=== PATIENT | female | born 1970 | race Caucasian/White ===

== ENCOUNTER → 2021-04-29 14:37 | Outpatient (BNVA) | payer BC, SELFPAY | PROVIDERS: Visit Provider Nurse Practitioner Family | DX: M25.572 Pain in left ankle and joints of left foot (principal); R60.0 Localized edema | CPT/HCPCS: 73610 ==

== ENCOUNTER 2021-10-12 03:03 | Emergency (ER) | payer BC, SELFPAY ==
[2021-10-12 03:05] VITALS: BP 188/91; PULSE 63; RESP 18; TEMP 36.7; O2SAT 97; BMI 58.1
--- NOTE | 2021-10-12 03:09 | CTR_ITS ---
PROCEDURE INFORMATION: Exam: CT Head Without Contrast Exam date and time: 10/12/2021 3:09 AM Age: 51 years old Clinical indication: Weakness, extremity and weakness, facial; Left; Additional info: Stroke symptoms, weakness TECHNIQUE: Imaging protocol: Computed tomography of the head without contrast. Radiation optimization: All CT scans at this facility use at least one of these dose optimization techniques: automated exposure control; mA and/or kV adjustment per patient size (includes targeted exams where dose is matched to clinical indication); or iterative reconstruction. Other technique: STROKE PROTOCOL was implemented. COMPARISON: No relevant prior studies available. RADIATION DOSE METRICS: Total DLP (mGy-cm): 788.19 FINDINGS: Brain: Normal. No hemorrhage. Unremarkable white matter. No mass effect. Cerebral ventricles: No ventriculomegaly. Paranasal sinuses: Visualized sinuses are unremarkable. No fluid levels. Mastoid air cells: Visualized mastoid air cells are well aerated. Bones/joints: Defects at the medial orbital huddleston bilaterally are probably chronic. Soft tissues: Unremarkable. CT/CT head wo con* [id number] IMPRESSION: No acute intracranial abnormality. ASSESSMENT: ASPECTS ([place] Stroke Program Early CT Score) is 10.
--- NOTE | 2021-10-12 03:10 | XRR_ITS ---
PROCEDURE INFORMATION: Exam: XR Chest Exam date and time: 10/12/2021 3:10 AM Age: 51 years old Clinical indication: Other: Weakness TECHNIQUE: Imaging protocol: XR of the chest. Views: 1 view. COMPARISON: CR Chest 2 views* [id number] 01/18/2015 10:26 PM FINDINGS: Lungs: Unremarkable. No consolidation. Pleural spaces: Unremarkable. No pleural effusion. No pneumothorax. Heart/Mediastinum: Heart is borderline prominent and mildly increased. Bones/joints: No acute findings. XR/XR chest 1V portable [id number] IMPRESSION: Borderline cardiac prominence with mild increase from prior study but otherwise unchanged.
--- NOTE | 2021-10-12 03:10 | ECG_ITS ---
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 Measurements Intervals [place] Rate: 75 P: 33 ID: [id number] QRS: 7 QRSD: 89 T: -5 QT: 352 QTc: 393 Interpretive Statements SINUS RHYTHM WITH SHORT ID INTERVAL MODERATE VOLTAGE CRITERIA FOR LVH, CONSIDER NORMAL VARIANT [MEETS CRITERIA IN ONE OF: R(aVL), S(V1), R(V5), R(V5/V6)+S(V1)] NONSPECIFIC T-WAVE ABNORMALITY INTERPRETATION BASED ON A DEFAULT AGE OF 40 YEARS No previous ECG available for comparison Electronically Signed On 10-12-2021 8:10:11 ELECTRIC MOTOR TESTER by Shala Ring M.D. [id number] f
--- NOTE | 2021-10-12 03:12 | W.ED.NEUROSD ---
HPI - Neuro Symptoms/Deficit General: Chief Complaint: Weakness Stated Complaint: L sided weakness Time Seen by Provider: 10/12/21 03:08 History of Present Illness: HPI Narrative: 51-year-old female with a history of hypertension. She presents with symptoms of left-sided numbness mainly, potentially with some weakness that started around 1 AM. She states she had been sitting watching a movie, and noticed that her left leg began to feel numb. She got up and walked around, and it started tingling. She then noticed some paresthesia to her left face and left upper extremity as well. She was able to walk. She dialed 911. There are no language problems, blind spots, no confusion. She has noticed some visual changes lately, that her vision has been a bit more blurry. She actually saw an eye doctor on Wednesday and her prescription had changed. Onset (ago): hour(s) Time: 03:20 Last Observed Normal: 01:00 Location: left face, left arm and left leg History of same: No Severity: mild Quality: numb and tingling Relieving factors: none Exacerbating factors: none Associated symptoms: Reports headache(s), nausea and weakness (Potentially); Deny chest pain, cough, diaphoresis, fevers/chills, anorexia, short of breath or vomiting Review of Systems Const: Denies: diaphoresis Card: Denies: chest pain GI: Reports: nausea; Denies: vomiting Neuro: Reports: headache(s) NIH stroke score NIHSS: Level Of Consciousness - 1a: 0 Level Of Consciousness Questions - 1b: Both Correct Level Of Consciousness Commands - 1c: Both Correct Best Gaze - 2: Normal Visual Watson - 3: No Visual Loss Facial Palsy - 4: Normal Motor Arm Right - 5: No Drift Motor Arm Left - 5: No Drift Motor Leg Right - 6: No Drift Motor Leg Left - 6: No Drift Limb Ataxia - 7: Absent Sensory - 8: Mild To Moderate Loss Best Language - 9: No Aphasia Dysarthia - 10: Normal Extinction And Inattention - 11: 0 Score: Total Score: 1 Physical Exam Const: GENERAL APPEARANCE: cooperative and anxious NUTRITIONAL APPEARANCE: obese ORIENTATION/CONSCIOUSNESS: Yes awake, Yes oriented to person, Yes oriented to place and Yes oriented to time HENMT: COMMON NORMALS: normocephalic and atraumatic HEAD & SCALP: normocephalic and atraumatic FACE & SINUS: normal facial exam Eye: COMMON NORMALS: Equal, round and reactive pupils present and EOMs intact bilaterally PUPIL: Yes Equal, round and reactive pupils present Chest: COMMONS NORMALS: normal inspection of the chest Resp: COMMON NORMALS: normal respiratory effort, No use of accessory muscles and clear to auscultation bilaterally AUSCULTATION: clear to auscultation bilaterally Cardio: COMMON NORMALS: regular rate and regular rhythm RATE: regular rate RHYTHM: regular rhythm GI: COMMON NORMALS: Normal to inspection, nondistended, normoactive bowel sounds present and Soft to palpation PALPATION: Yes Soft to palpation Neuro: SARAH COMA SCALE: document GCS findings Sarah coma scale eye opening: Spontaneous Sarah coma scale verbal response: Orientated Sarah coma scale motor response: Obey commands [place] coma scale total score: 15 SENSORIUM/ORIENTATION: Yes oriented to person, Yes oriented to place and Yes oriented to time COORDINATION/BALANCE: [id number] test normal SPEECH: speech normal GAIT: Yes Normal gait present SENSORY EXAM: Yes extremities (Mild decrease sensation to left medial leg. Other sensation intact) MOTOR EXAM: Pronator motor function not present COORDINATION: [id number]-gy-[id number] test normal Course Vital Signs: Vital signs: Vital Signs Temperature 98.1 F 10/12/21 03:05 Pulse Rate 63 10/12/21 03:05 Respiratory Rate 18 10/12/21 06:18 Blood Pressure 162/82 10/12/21 06:18 Pulse Oximetry 93 10/12/21 05:51 MDM - Neuro Symptoms/Deficit MDM Narrative: Medical decision making narrative: No pronator drift. She has some left knee pain limiting her lower extremity exam to some degree, but no discoordination/ataxia on the left. There may be some subjective heaviness of the left side, but not enough to score on NIH testing. Minimal sensation change left she does appear anxious. She is hypertensive here with a blood pressure 187/98. She did not take her atenolol tonight. She has a headache. Her head CT noncontrast is normal. Her NIH is 1. 0701: Patient resting comfortably in the bed. On reexamination, her paresthesia is improved, not completely gone. No other symptoms. She has walked to the bathroom more than once without significant problem besides the antalgia from her left knee. She will be allowed discharge. We will continue work-up as an outpatient with MRI and echo with carotids. Full dose aspirin. Outpatient follow-up. She is already on atorvastatin. Lab Data: Labs: Lab Results 10/12/21 10/12/21 10/12/21 03:24 03:24 03:24 WBC 7.7 10^3/uL 10^3/ uL (4.0-10.0) RBC 4.06 10^6/uL L 10 ^6/uL (4.1-5.3) Hgb 12.2 g/dL g/dL (11.5-15.3) Hct 38.8 % % (37.0-47.0) MCV 95.6 fl fl (81-99) MCH 30.0 pg pg (28.0-34.0) MCHC 31.4 g/dL g/dL (30.0-36.0) RDW 13.5 % % (12.1-15.1) Plt Count 262 10^3/cmm 10^3 /cmm (130-400) MPV 10.1 fL fL (7.4-10.4) Neut % (Auto) 58.4 % % Lymph % (Auto) 33.1 % % [place] % (Auto) 6.3 % % Eos % (Auto) 1.4 % % Baso % (Auto) 0.4 % % Neut # (Auto) 4.47 10^3/uL 10^3 /uL (1.8-7.7) Lymph # (Auto) 2.5 10^3/uL 10^3/ uL (0.8-4.8) [place] # (Auto) 0.5 10^3/uL 10^3/ uL (0.2-0.9) Eos # (Auto) 0.1 10^3/uL 10^3/ uL (0.0-0.8) Baso # (Auto) 0.0 10^3/uL 10^3/ uL (0.0-0.1) Nucleated RBC % (a uto) 0 % % Nucleated RBCs # 0.0 /100WBC /100W BC PT 12.90 SECONDS SEC ONDS (12.1-14.9) INR 0.95 (0.8-1.2) APTT 26.2 SECONDS SECO NDS (23.9-36.7) Sodium 140 mmol/L mmol/L (136-145) Potassium 4.0 mmol/L mmol/L (3.5-5.1) Chloride 103 mmol/L mmol/L (98-107) Carbon Dioxide 27 mmol/L mmol/L (22-29) Anion Gap 14.0 (5-19) BUN 12 mg/dL mg/dL (6-20) Creatinine 0.6 mg/dL mg/dL (0.5-0.9) GFR Calculation 105.0 mL/min mL/m in (90-130) Glucose 112 mg/dL mg/dL (65-115) Calculated Osmolal ity 291 mOsm/kg mOsm/ kg (285-295) Calcium 8.4 mg/dL L mg/dL (8.5-10.5) Total Bilirubin 0.2 mg/dL mg/dL (0.15-1.2) AST 9 U/L U/L (0-32) ALT 11 U/L U/L (0-33) Alkaline Phosphata se 76 IU/L IU/L (35-105) Troponin T Gen 5 n g/L Total Protein 6.4 g/dL L g/dL (6.6-8.7) Albumin 3.8 g/dL g/dL (3.5-5.2) Globulin 2.6 g/dL g/dL (1.3-4.6) Urine Color Urine Appearance Urine pH Ur Specific Gravit y Urine Protein Urine Glucose (UA) Urine Ketones Urine Blood Urine Nitrate Urine Bilirubin Urine Urobilinogen Ur Leukocyte Judy ase Urine Opiates Scre en Ur Barbiturates Sc reen Ur Phencyclidine S crn Ur Amphetamines Sc reen U Benzodiazepines Scrn Urine Cocaine Scre en U Marijuana (THC) Screen 10/12/21 10/12/21 10/12/21 03:24 04:58 04:58 WBC RBC Hgb Hct MCV MCH MCHC RDW Plt Count MPV Neut % (Auto) Lymph % (Auto) [place] % (Auto) Eos % (Auto) Baso % (Auto) Neut # (Auto) Lymph # (Auto) [place] # (Auto) Eos # (Auto) Baso # (Auto) Nucleated RBC % (a uto) Nucleated RBCs # PT INR APTT Sodium Potassium Chloride Carbon Dioxide Anion Gap BUN Creatinine GFR Calculation Glucose Calculated Osmolal ity Calcium Total Bilirubin AST ALT Alkaline Phosphata se Troponin T Gen 5 n g/L 9 ng/L ng/L (0-10) Total Protein Albumin Globulin Urine Color Yellow (Yellow) Urine Appearance Clear (CLEAR) Urine pH 5 (5-7) Ur Specific Gravit y 1.020 (1.005-1.030) Urine Protein Neg (Negative) Urine Glucose (UA) Norm (Normal) Urine Ketones Negative (Negative) Urine Blood Neg (Negative) Urine Nitrate Negative (Negative) Urine Bilirubin Neg (Negative) Urine Urobilinogen Norm mg/dL mg/dL (Negative) Ur Leukocyte Judy ase Negative (Negative) Urine Opiates Scre en Positive ng/mL H ng/mL (Negative) Ur Barbiturates Sc reen Negative ng/mL ng /mL (Negative) Ur Phencyclidine S crn Negative ng/mL ng /mL (Negative) Ur Amphetamines Sc reen Negative ng/mL ng /mL (Negative) U Benzodiazepines Scrn Positive ng/mL H ng/mL (Negative) Urine Cocaine Scre en Negative ng/mL ng /mL (Negative) U Marijuana (THC) Screen Negative ng/mL ng /mL (Negative) Discharge Plan Discharge Patient Disposition: Home Clinical Impression: Transient ischemic attack (TIA) Condition: Stable Prescriptions: New aspirin 325 mg capsule 325 mg PO DAILY Qty: 30 RF: 0 Discharge Orders: Discharge ED (Routine); Ordered 10/12/21 Ordered By: Danny Keith Referrals: Lolis Sesay [Primary Care Provider] - 1-3 days Discharge Diet: Advance as tolerated Discharge Activity: Increase activity as tolerated Patient Instructions: Transient Ischemic Attack (ED) Activity Restrictions/Additional Instructions: Return for increasing weakness or numbness, mental status changes, trouble with language, worsening vision, syncope or passing out, any other concerns. Medications as directed. Follow-up with your doctor. Outpatient orders have been written for you for further testing regarding your work-up. You should get a call from case management at the beginning of the next week to help you set these up. If you do not, call [phone] during normal business hours and ask for the child support case officer phone engineer. Coding Level of Care Code ED Armored Machine Operator for Valentino Fwd Exam Comprehensive
[2021-10-12 03:29] LABS: Basophils % 0.4 %; Eosinophils # 0.1 10^3/uL (0.0-0.8); Eosinophils % 1.4 %; Hematocrit 38.8 % (37.0-47.0); Hemoglobin 12.2 g/dL (11.5-15.3); Lymphocytes # 2.5 10^3/uL (0.8-4.8); Lymphocytes % 33.1 %; Mean Corpuscular HGB Conc 31.4 g/dL (30.0-36.0); Mean Corpuscular Volume 95.6 fl (81-99); Mean Platelet Volume 10.1 fL (7.4-10.4); Monocytes # 0.5 10^3/uL (0.2-0.9); Monocytes % 6.3 %; Neutrophils # 4.47 10^3/uL (1.8-7.7); Neutrophils % 58.4 %; Nucleated Red Blood Cells % 0 %; Platelet Count 262 10^3/cmm (130-400); Red Blood Count 4.06 10^6/uL (4.1-5.3); Red Cell Distribution Width 13.5 % (12.1-15.1); White Blood Count 7.7 10^3/uL (4.0-10.0)
[2021-10-12 03:40] LABS: INR 0.95 (0.8-1.2)
[2021-10-12 03:41] LABS: Partial Thromboplastin Time 26.2 SECONDS (23.9-36.7)
[2021-10-12 03:49] LABS: Alanine Aminotransferase 11 U/L (0-33); Albumin Level 3.8 g/dL (3.5-5.2); Alkaline Phosphatase 76 IU/L (35-105); Aspartate Amino Transferase 9 U/L (0-32); Blood Urea Nitrogen 12 mg/dL (6-20); Calcium 8.4 mg/dL (8.5-10.5); Carbon Dioxide 27 mmol/L (22-29); Chloride 103 mmol/L (98-107); Globulin 2.6 g/dL (1.3-4.6); Glucose 112 mg/dL (65-115); Osmolality Calculated 291 mOsm/kg (285-295); Sodium 140 mmol/L (136-145); Total Bilirubin 0.2 mg/dL (0.15-1.2); Total Protein 6.4 g/dL (6.6-8.7)
[2021-10-12] MEDS: labetalol 5 mg/mL SDV 20mL 10 MG IVP (03:56)
[2021-10-12] MEDS: LORazepam 2 mg/mL INJ 1 mL 1 MG IVP ×2 (03:56→06:11)
[2021-10-12] MEDS: aspirin 325 mg Tablet PO (03:56)
[2021-10-12] MEDS: ondansetron 2 mg/ML SDV 2 mL 4 MG IVP (04:01)
[2021-10-12 05:08] LABS: Add Urine Microscopic? NO; Charge for UA Resulting for Rev
[2021-10-12 05:22] LABS: Bilirubin Urine Neg (Negative); Blood Urine Neg (Negative); Glucose Urine UA Norm (Normal); Ketones Urine Negative (Negative); Leukocyte Esterase Urine Negative (Negative); Nitrate Urine Negative (Negative); Protein Urine Neg (Negative); Urine Appearance Clear (CLEAR); Urine Color Yellow (Yellow); Urobilinogen Urine Norm (Negative); pH Urine 5 (5-7)
[2021-10-12 05:32] LABS: Troponin T (5th) Once 9 ng/L (0-10)
[2021-10-12 05:37] LABS: Amphetamines Screen Urine Negative (Negative); Barbiturates Screen Urine Negative (Negative); Benzodiazepines Screen Urine Positive (Negative); Cocaine Screen Urine Negative (Negative); Opiate Screen Urine Positive (Negative); PCP Screen Urine Negative (Negative); THC Screen Urine Negative (Negative)
[2021-10-12] MEDS: metoclopramide 5 mg/mL SDV 2 mL 10 MG IVP (05:44)
[2021-10-12 05:51] VITALS: BP 137/66; O2SAT 93
[2021-10-12 06:18] VITALS: BP 162/82; RESP 18
[2021-10-12 08:37] VITALS: BP 162/82; PULSE 98; RESP 18; O2SAT 98
[2021-10-12 08:59] LABS: Glucose Point of Care 112 mg/dL (70-110)
--- NOTE | 2021-10-13 07:06 | DCPLANNER ---
Addendum entered by Portia Mullins 01/22/22 14:08: property manager was notified by centralized scheduling, that patient has been contacted several times about scheduling these tests and patient does not want to schedule these tests. Original Note: property manager had message to schedule an outpatient MRI, echo and ultrasound for patient. property manager faxed signed order to centralized scheduling, who will call patient with appointment information.
== END 2021-10-12 08:39 | disposition home or self-care (01) ==
PROVIDERS: Emergency Provider Emergency Medicine; PCP Nurse Practitioner Family
DX: G45.9 Transient cerebral ischemic attack, unspecified (principal); M25.562 Pain in left knee; R51.9 Headache, unspecified; I10 Essential (primary) hypertension
CPT/HCPCS: 36416; 70450; 71045; 80053; 80306; 81003; 82962; 84484; 85025; 85610; 85730; 93005; 96374; 96375; 96376; 99284; J2060; J2405; J2765; J3490

== ENCOUNTER 2022-01-06 15:06 | Emergency (ER) | payer BC, SELFPAY ==
[2022-01-06 15:23] VITALS: BP 156/72; PULSE 75; RESP 16; TEMP 36.6; O2SAT 94; BMI 57.9
--- NOTE | 2022-01-06 16:15 | ED_ITS ---
HPI - Dizziness General: Chief Complaint: Dizziness Stated Complaint: NAUSEA, DIZZY Time Seen by Provider: 01/06/22 15:39 Course Vital Signs: Vital signs: Vital Signs Temperature 97.9 F 01/06/22 15:23 Pulse Rate 75 01/06/22 15:23 Respiratory Rate 16 01/06/22 15:23 Blood Pressure 156/72 01/06/22 15:23 Pulse Oximetry 94 01/06/22 15:23 Discharge Plan Discharge Condition: Stable Referrals: Lolis Sesay [Primary Care Provider] - Coding Level of Care Code ED Install And Repair Technician for Valentino Downing
--- NOTE | 2022-01-06 16:15 | ECG_ITS ---
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 Measurements Intervals [place] Rate: 71 P: 33 MO: 117 QRS: 2 QRSD: 90 T: 7 QT: 381 QTc: 415 Interpretive Statements SINUS RHYTHM WITH SHORT MO INTERVAL MODERATE VOLTAGE CRITERIA FOR LVH, CONSIDER NORMAL VARIANT [MEETS CRITERIA IN ONE OF: R(aVL), S(V1), R(V5), R(V5/V6)+S(V1)] Diffuse nonspecific T wave Compared to ECG 10/12/2021 03:27:08 T-wave abnormality no longer present Electronically Signed On 01-06-2022 22:56:06 CDT by Crystal Bryant M.D. [id number]
--- NOTE | 2022-01-06 16:33 | ED_ITS ---
HPI - General Adult General: Chief complaint: Dizziness Stated complaint: NAUSEA, DIZZY Time Seen by Provider: 01/06/22 15:39 History of Present Illness: Patient is a 51-year-old female with a history of recent TIA from 11/2021 presented to the emergency room for multiple complaints including headache for the last 48 hours, drooling on the right side of the face, polyuria, tingling on the left side of the face, bifrontal headache, and sore throat and fatigue. Patient tells me that most of the symptoms has been going on for the last week but now has gotten worse in the last 2 days. Patient denies any cough, chest pain, congestion, fever/chills, abdominal complaitns, nausea/vomiting, diarrhea melena or hematochezia. Patient has not had any difficulty eating. Patient denies any sick contact, recent travel or immobilization. Patient tells me that every time she tries to get up, she feels lightheaded. Patient denies any room spinning sensation, denies any focal weakness in the arms or legs, double vision, diplopia, if slurring of speech, facial droop amaurosis fugax, or other neurological complaints since onset of symptoms. Onset:1 week ago Duration:ongoing Location:home Severity:moderate Associated symptoms: Reports headache(s); Deny chest pain, dyspnea, nausea, rash, palpitations or vomiting Review of Systems Const: Denies: fever(s) or chills Eyes: Denies: change in vision ENMT: Reports: other (+sore throat) Card: Denies: chest pain or palpitations Resp: Denies: dyspnea or non-productive cough GI: Denies: abdominal pain, nausea, vomiting or diarrhea : Reports: urinary frequency; Denies: dysuria Musc: Denies: extremity pain Skin/Breast: Denies: rash or new lesions Neuro: Reports: headache(s); Denies: weakness in extremities Psych: Reports: other (Normal mood) Lucio/Lymph: Denies: easy bruising PFSH ED PFSH: Medical History (Updated 01/06/22 @ 19:43 by Mini Quinones MD) Paresthesia Social History (Updated 01/06/22 @ 16:36 by Mini Quinones MD) Smoking and tobacco status: never smoked Alcohol intake: never Substance/Drug Use: never Physical Exam Const: COMMON NORMALS: alert HENMT: COMMON NORMALS: atraumatic HEAD & SCALP: atraumatic MOUTH: moist mucous membranes not abnormal Eye: COMMON NORMALS: EOMs intact bilaterally and conjunctivae normal CONJUNCTIVA: Yes conjunctivae normal Neck/C-Spine: COMMON NORMALS: full ROM and supple Resp: COMMON NORMALS: normal respiratory effort and clear to auscultation bilaterally AUSCULTATION: clear to auscultation bilaterally Cardio: COMMON NORMALS: regular rate RATE: regular rate GI: COMMON NORMALS: Soft to palpation and non-tender PALPATION: Yes Soft to palpation Extremity: COMMON NORMALS: full ROM Neuro: SENSORIUM/ORIENTATION: Yes alert MOTOR EXAM: No Abnormal motor strength present and Other motor observations present (no focal motor deficits) OTHER: Mental status? Awake, alert, and oriented to self, year, month, location, and situation.? Following simple axial and appendicular commands.? Has appropriate fund of knowledge, comprehension, and insight.? Able to recall and understands pertinent aspects of medical history and current treatment status.? ? Language? Speech is fluent without word-finding difficulties.? Intact naming, expression, machine burrer, and repetition.? ? Cranial nerves? 2,3,4,6: PERRL, EOMI with no nystagmus. 5: Intact sensation to light touch, symmetric? 7: Smile symmetrical, no facial droop.? 8: Hearing grossly intact.? 9,10: Normal palate movement.? 11: Normal strength in trapezius bilaterally 12: Tongue protrudes midline.? ? Motor examination? Normal bulk & tone. Strength as follows (R/L): Delts (5/5), Biceps (5/5), Triceps (5/5), Wrist ext (5/5), hip flexors (5/5), plantarflexors (5/5), dorsiflexors (5/5). ? Sensation? Light Touch: Grossly intact and equal in upper and lower extremities bilaterally? Romberg: Negative.? Distal joint position sense intact ? Coordination? Oqbskt-jg-vnth-finger movements intact without dysmetria or past-pointing.? Rapid fingertaps: preserved amplitude without decriment.? No tremor, myoclonus or truncal ataxia.? ? Gait/stance? Steady, normal narrow base gait with appropriate arm swing and turning.? Tandem gait without hesitation or loss of balance. Psych: COMMON NORMALS: speech normal SPEECH: Yes normal speech MOOD & AFFECT: Yes euthymic mood Course Vital Signs: Vital signs: Vital Signs Temperature 97.9 F 01/06/22 15:23 Pulse Rate 77 01/06/22 20:07 Respiratory Rate 18 01/06/22 20:07 Blood Pressure 147/80 01/06/22 20:07 Pulse Oximetry 98 01/06/22 20:07 [facility] - General Adult Medical Decision Making Patient is a 51-year-old female presenting to the emergency room with multiple complaints including headache, lightheadedness, polyuria, drooling from R mouth, and L facial paresthesia. Patient is neurologically intact on physical exam. Troponin and EKG within normal limit. No focal lab abnormality. D-dimer appears to be elevated. CTA negative for PE. CTA head and neck did not show any signs of vessel issues including dissection. Incidental findings of thyroid discussed extensively with patient. Patient received a copy of the CT report with the documented findings in her dischrage paperwork. Patient is instructed to follow up urgently with specialists. At the present, patient has no other focal complaints of symptoms described today. Do not suspect acute stroke at this time. Do not suspect ACS currently. Disposition: Discharge. Patient counseled regarding diagnostic impression, treatment plan. Patient given ED strict return precautions to return for continuation, worsening, or development of new symptoms. Instructed to f/u w/ PCP regarding symptoms today. Patient verbalized understanding. Lab Data : 01/06/22 16:35 01/06/22 16:50 Radiology Impressions Chest CTA 01/06/22 17:58 IMPRESSION: Negative CTA chest. No acute abnormality. COMMENTS: Consistent with the [employer]'s Incidental Findings Committee white paper ([employer] [place] [facility] 2015): In patients aged 35 years and older with an incidental thyroid nodule equal to or greater than 1.[address], MRI or extrathyroidal US, further evaluation with dedicated thyroid US is recommended for patients with normal life expectancy and without comorbidities. For smaller nodules without suspicious features, no further evaluation or follow up is recommended. Head CT 01/06/22 17:58 IMPRESSION: No acute intracranial abnormality. Head/Neck CTA 01/06/22 17:58 IMPRESSION: No large vessel stenosis or occlusion. IMPRESSION: Less than 50% carotid artery stenosis. COMMENTS: Consistent with the [employer]'s Incidental Findings Committee white paper ([facility] [place] [facility] 2015): In patients aged 35 years and older with an incidental thyroid nodule equal to or greater than 1.[address], MRI or extrathyroidal US, further evaluation with dedicated thyroid US is recommended for patients with normal life expectancy and without comorbidities. For smaller nodules without suspicious features, no further evaluation or follow up is recommended. REFERENCES: NASCET CRITERIA. The degree of internal carotid artery stenosis is based on NASCET criteria. Normal is no stenosis. Mild is less than 50% stenosis. Moderate is 50-69% stenosis. Severe is 70% to 99% stenosis. Total occlusion is no detectable patent lumen. Laboratory Results WBC 9.8 10^3/uL (4.0-10.0) 01/06/22 16:35 RBC 4.47 10^6/uL (4.1-5.3) 01/06/22 16:35 Hgb 13.7 g/dL (11.5-15.3) 01/06/22 16:35 Hct 45.9 % (37.0-47.0) 01/06/22 16:35 MCV 102.7 fl (81-99) H 01/06/22 16:35 MCH 30.6 pg (28.0-34.0) 01/06/22 16:35 MCHC 29.8 g/dL (30.0-36.0) L 01/06/22 16:35 RDW 13.7 % (12.1-15.1) 01/06/22 16:35 Plt Count 254 10^3/cmm (130-400) 01/06/22 16:35 MPV 10.4 fL (7.4-10.4) 01/06/22 16:35 Neut % (Auto) 66.3 % 01/06/22 16:35 Lymph % (Auto) 24.9 % 01/06/22 16:35 Camas % (Auto) 5.9 % 01/06/22 16:35 Eos % (Auto) 1.7 % 01/06/22 16:35 Baso % (Auto) 0.6 % 01/06/22 16:35 Neut # (Auto) 6.51 10^3/uL (1.8-7.7) 01/06/22 16:35 Lymph # (Auto) 2.5 10^3/uL (0.8-4.8) 01/06/22 16:35 Camas # (Auto) 0.6 10^3/uL (0.2-0.9) 01/06/22 16:35 Eos # (Auto) 0.2 10^3/uL (0.0-0.8) 01/06/22 16:35 Baso # (Auto) 0.1 10^3/uL (0.0-0.1) 01/06/22 16:35 Nucleated RBC % (auto) 0 % 01/06/22 16:35 Nucleated RBCs # 0.0 /100WBC 01/06/22 16:35 D-Dimer 1.13 ug/mIFEU (0-0.59) H 01/06/22 16:50 Sodium 140 mmol/L (136-145) 01/06/22 16:50 Potassium 4.4 mmol/L (3.5-5.1) 01/06/22 16:50 Chloride 103 mmol/L (98-107) 01/06/22 16:50 Carbon Dioxide 25 mmol/L (22-29) 01/06/22 16:50 Anion Gap 16.4 (5-19) 01/06/22 16:50 BUN 18 mg/dL (6-20) 01/06/22 16:50 Creatinine 0.7 mg/dL (0.5-0.9) 01/06/22 16:50 GFR Calculation 87.9 mL/min (90-130) L 01/06/22 16:50 Glucose 100 mg/dL (65-115) 01/06/22 16:50 Calculated Osmolality 292 mOsm/kg (285-295) 01/06/22 16:50 Calcium 9.4 mg/dL (8.5-10.5) 01/06/22 16:50 Total Bilirubin 0.3 mg/dL (0.15-1.2) 01/06/22 16:50 AST 12 U/L (0-32) 01/06/22 16:50 ALT 18 U/L (0-33) 01/06/22 16:50 Alkaline Phosphatase 87 IU/L (35-105) 01/06/22 16:50 Troponin T Baseline 8 ng/L (0-10) 01/06/22 16:50 Troponin T 120 Minute 6.30 ng/L (0-10) 01/06/22 18:27 Delta Troponin T -1.7 ABS# (0-10) L 01/06/22 18:27 Total Protein 6.5 g/dL (6.6-8.7) L 01/06/22 16:50 Albumin 3.9 g/dL (3.5-5.2) 01/06/22 16:50 Globulin 2.6 g/dL (1.3-4.6) 01/06/22 16:50 Lipase 26 U/L (13-60) 01/06/22 16:50 TSH 2.72 uIU/mL (0.27-4.20) 01/06/22 16:50 Free T4 0.95 ng/dL (0.82-1.77) 01/06/22 16:50 Urine Color Yellow (Yellow) 01/06/22 16:35 Urine Appearance Clear (CLEAR) 01/06/22 16:35 Urine pH 5 (5-7) 01/06/22 16:35 Ur Specific Frostproof 1.025 (1.005-1.030) 01/06/22 16:35 Urine Protein Neg (Negative) 01/06/22 16:35 Urine Glucose (UA) Norm (Normal) 01/06/22 16:35 Urine Ketones Negative (Negative) 01/06/22 16:35 Urine Blood Neg (Negative) 01/06/22 16:35 Urine Nitrate Negative (Negative) 01/06/22 16:35 Urine Bilirubin Neg (Negative) 01/06/22 16:35 Urine Urobilinogen Norm mg/dL (Negative) 01/06/22 16:35 Ur Leukocyte Esterase Negative (Negative) 01/06/22 16:35 Nasal Influ A H1 2009 PCR Not detected (NOT DETECT) 01/06/22 18:35 Coronavirus 229E (PCR) Not detected (NOT DETECT) 01/06/22 18:35 Influenza A (H1) PCR Not detected (NOT DETECT) 01/06/22 18:35 Influenza A (H3) PCR Not detected (NOT DETECT) 01/06/22 18:35 Influenza Type A (PCR) Not detected (NOT DETECT) 01/06/22 18:35 Influenza Type B (PCR) Not detected (NOT DETECT) 01/06/22 18:35 SARS-CoV-2 (PCR) Not detected (NOT DETECT) 01/06/22 18:35 Imaging Data Other Imaging: Radiologist's impression: [facility] [address] [place] [address] CT Scan Report Signed Patient: Wilma Kohli Unit #: [id number] : 1970 Age/Sex: 51 / F ADM Date: 01/06/22 Loc: ER Room/Bed: Attending Dr: Ordering Provider/Ordering MD: Mini Quinones MD Date of Service: 01/06/22 Procedure(s): CT angio chest PE protcl [id number] Accession Number(s): [id number] Report Number: [id number] PROCEDURE INFORMATION: Exam: CTA Chest With Contrast Exam date and time: 01/06/2022 6:55 PM Age: 51 years old Clinical indication: Pain; Shortness of breath; Other: Evaluate vessels; Additional info: Eval pe TECHNIQUE: Imaging protocol: Computed tomographic angiography of the chest with contrast. 3D rendering (Not supervised by radiologist): MIP and/or 3D reconstructed images were created by the technologist. Radiation optimization: All CT scans at this facility use at least one of these dose optimization techniques: automated exposure control; mA and/or kV adjustment per patient size (includes targeted exams where dose is matched to clinical indication); or iterative reconstruction. Contrast material: OMNI 350; Contrast volume: 96 ml; Contrast route: INTRAVENOUS (IV);? COMPARISON: CR (CHEST, ) 10/12/2021 3:51 AM RADIATION DOSE METRICS: Total DLP (mGy-cm): 620.33 FINDINGS: Pulmonary arteries: Normal. No pulmonary emboli. Aorta: Unremarkable. No aortic aneurysm. No aortic dissection. Thyroid: Circumscribed heterogeneous peripherally calcified left inferior thyroid nodule measures 1.3 cm greatest diameter.? No dedicated imaging follow-up is recommended. Lungs: Unremarkable. No consolidation. No masses. Pleural spaces: Unremarkable. No pneumothorax. No pleural effusion. Heart: Unremarkable. No cardiomegaly. No pericardial effusion. Mediastinal space: Calcified nonenlarged mediastinal granulomas. Lymph nodes: Negative for mediastinal lymphadenopathy. Bones/joints: Unremarkable. No acute fracture. Soft tissues: Unremarkable. CT/CT angio chest PE protcl [id number] IMPRESSION: Negative CTA chest. No acute abnormality. ? COMMENTS: Consistent with the [employer]'s Incidental Findings Committee white paper ([facility] [place] [facility] 2015): In patients aged 35 years and older with an incidental thyroid nodule equal to or greater than 1.[address], MRI or extrathyroidal US, further evaluation with dedicated thyroid US is recommended for patients with normal life expectancy and without comorbidities. For smaller nodules without suspicious features, no further evaluation or follow up is recommended. ? Dictated By: Rc Jimenez Signed By: Rc Jimenez Signed Date/Time: 01/06/221945 DD/ [address] [address] [address] Scan Report Signed Patient: Wilma Kohli Unit #: [id number] : 1970 Age/Sex: 51 / F ADM Date: 01/06/22 Loc: ER Room/Bed: Attending Dr: Ordering Provider/Ordering MD: Mini Quinones MD Date of Service: 01/06/22 Procedure(s): CT angio headneck* [id number] Accession Number(s): [id number] Report Number: [id number] PROCEDURE INFORMATION: Exam: CT Angiography Head With Contrast, Arteriography Exam date and time: 01/06/2022 6:47 PM Age: 51 years old Clinical indication: Pain; Other: Evaluate vessels; Additional info: Eval vessel issues TECHNIQUE: Imaging protocol: Computed tomography angiography of the head with contrast. Exam focused on the arteries. 3D rendering (Not supervised by radiologist): MIP and/or 3D reconstructed images were created by the technologist. Radiation optimization: All CT scans at this facility use at least one of these dose optimization techniques: automated exposure control; mA and/or kV adjustment per patient size (includes targeted exams where dose is matched to clinical indication); or iterative reconstruction. Contrast material: OMNI 350; Contrast volume: 96 ml; Contrast route: INTRAVENOUS (IV);? COMPARISON: 1. CT head wo con* [id number] 01/06/2022 6:[address] head wo con* [id number] 10/12/2021 3:06 AM RADIATION DOSE METRICS: Total DLP (mGy-cm): 680.33 FINDINGS: ANTERIOR CIRCULATION: Right internal carotid artery: Unremarkable. Intracranial segment is patent with no significant stenosis. No aneurysm. Right middle cerebral artery: Unremarkable. No occlusion or significant stenosis. No aneurysm.? Right anterior cerebral artery: Unremarkable. No occlusion or significant stenosis. No aneurysm.? Left internal carotid artery: Unremarkable. Intracranial segment is patent with no significant stenosis. No aneurysm. Left middle cerebral artery: Unremarkable. No occlusion or significant stenosis. No aneurysm.? Left anterior cerebral artery: Unremarkable. No occlusion or significant stenosis. No aneurysm.? POSTERIOR CIRCULATION: Right vertebral artery: Unremarkable. No occlusion or significant stenosis. No aneurysm.? Left vertebral artery: Unremarkable. No occlusion or significant stenosis. No aneurysm.? Basilar artery: Unremarkable. No occlusion or significant stenosis. No aneurysm. Right posterior cerebral artery: Unremarkable. No occlusion or significant stenosis. No aneurysm.? Left posterior cerebral artery: Unremarkable. No occlusion or significant stenosis. No aneurysm.? Brain: No definite mass, mass effect, or midline shift. Cerebral ventricles: No ventriculomegaly. Bones/joints: Unremarkable. No acute fracture. Soft tissues: Unremarkable. PROCEDURE INFORMATION: Exam: CT Angiography Neck With Contrast Exam date and time: 01/06/2022 6:47 PM Age: 51 years old Clinical indication: Pain; Other: Evaluate vessels; Additional info: Eval vessel issues TECHNIQUE: Imaging protocol: Computed tomography angiography of the neck with contrast. 3D rendering (Not supervised by radiologist): MIP and/or 3D reconstructed images were created by the technologist. Radiation optimization: All CT scans at this facility use at least one of these dose optimization techniques: automated exposure control; mA and/or kV adjustment per patient size (includes targeted exams where dose is matched to clinical indication); or iterative reconstruction. Contrast material: OMNI 350; Contrast volume: 96 ml; Contrast route: INTRAVENOUS (IV);? COMPARISON: 1. CT head wo con* [id number] 01/06/2022 6:[address] head wo con* [id number] 10/12/2021 3:06 AM RADIATION DOSE METRICS: Total DLP (mGy-cm): 680.33 FINDINGS: Right common carotid artery: No stenosis. No dissection or occlusion. Right internal carotid artery: No significant stenosis of the extracranial segment. No dissection or occlusion. Minimal plaque in the bifurcation. Right external carotid artery: No occlusion or stenosis of the origin.? Left common carotid artery: No stenosis. No dissection or occlusion. Left internal carotid artery: No significant stenosis of the extracranial segment. No dissection or occlusion. Minimal plaque in the bifurcation. Left external carotid artery: No occlusion or stenosis of the origin.? Right vertebral artery: No stenosis. No dissection or occlusion. Left vertebral artery: No stenosis. No dissection or occlusion. Thyroid: Heterogeneous circumscribed partially calcified left thyroid nodule 1.5 cm diameter. Soft tissues: Normal. No significant soft tissue swelling. Bones/joints: No acute fracture. CT/CT angio headneck* [id number] IMPRESSION: No large vessel stenosis or occlusion. ? ? IMPRESSION: Less than 50% carotid artery stenosis. ? COMMENTS: Consistent with the [employer]'s Incidental Findings Committee white paper ([facility] [place] [facility] 2015): In patients aged 35 years and older with an incidental thyroid nodule equal to or greater than 1.[address], MRI or extrathyroidal US, further evaluation with dedicated thyroid US is recommended for patients with normal life expectancy and without comorbidities. For smaller nodules without suspicious features, no further evaluation or follow up is recommended. ? REFERENCES: NASCET CRITERIA. The degree of internal carotid artery stenosis is based on NASCET criteria. Normal is no stenosis. Mild is less than 50% stenosis. Moderate is 50-69% stenosis. Severe is 70% to 99% stenosis. Total occlusion is no detectable patent lumen. ? Dictated By: Rc Jimenez Signed By: Rc Jimenez Signed Date/Time: 01/06/221937 DD/ [address] [address] [address] Scan Report Signed Patient: Wilma Kohli Unit #: [id number] : 1970 Age/Sex: 51 / F ADM Date: 01/06/22 Loc: ER Room/Bed: Attending Dr: Ordering Provider/Ordering MD: Mini Quinones MD Date of Service: 01/06/22 Procedure(s): CT head wo con* [id number] Accession Number(s): [id number] Report Number: [id number] PROCEDURE INFORMATION: Exam: CT Head Without Contrast Exam date and time: 01/06/2022 6:38 PM Age: 51 years old Clinical indication: Pain; Headache; Additional info: Eval headache TECHNIQUE: Imaging protocol: Computed tomography of the head without contrast. Radiation optimization: All CT scans at this facility use at least one of these dose optimization techniques: automated exposure control; mA and/or kV adjustment per patient size (includes targeted exams where dose is matched to clinical indication); or iterative reconstruction. COMPARISON: CT head wo con* [id number] 10/12/2021 3:06 AM RADIATION DOSE METRICS: Total DLP (mGy-cm): 867.6 FINDINGS: Brain: Normal. No hemorrhage. Unremarkable white matter. No mass effect. Cerebral ventricles: No ventriculomegaly. Paranasal sinuses: Visualized sinuses are unremarkable. No fluid levels. Mastoid air cells: Visualized mastoid air cells are well aerated. Bones/joints: Unremarkable. No acute fracture. Soft tissues: Unremarkable. CT/CT head wo con* [id number] IMPRESSION: No acute intracranial abnormality. ? Dictated By: Rc Jimenez Signed By: Rc Jimenez Signed Date/Time: 01/06/221934 DD/ 37 Discharge Plan Discharge Patient Disposition: Home Clinical Impression: Light headedness, Fatigue, Paresthesia Condition: Stable Prescriptions: New acetaminophen 500 mg tablet 500 mg PO Q6H PRN (Reason: pain) 5 Days Qty: 20 0RF No Action multivitamin Tablet 1 tab PO BEDTIME 0RF atorvastatin 20 mg tablet 20 mg PO BEDTIME 0RF citalopram 40 mg tablet 40 mg PO BEDTIME 0RF atenolol 100 mg Tablet 100 mg PO BEDTIME 0RF valacyclovir 500 mg tablet 500 mg PO BEDTIME 0RF alprazolam 0.25 mg tablet 0.25 mg PO BID PRN (Reason: Anxiety) 0RF temazepam 30 mg capsule 30 mg PO BEDTIME 0RF zinc 50 mg Tablet 50 mg PO BEDTIME 0RF albuterol sulfate 90 mcg/actuation HFA aerosol inhaler 2 puff INHALATION Q4H PRN (Reason: Shortness Of Breath) 0RF Discharge Orders: Discharge ED (Routine); Ordered 01/06/22 Ordered By: Mini Quinones Referrals: Lolis Sesay [Primary Care Provider] - Discharge Diet: Advance as tolerated Discharge Activity: Increase activity as tolerated Patient Instructions: Acute Headache (ED) Activity Restrictions/Additional Instructions: Please come back to the emergency room you have any fever chills, worsening head ache, focal weakness, nausea/vomiting, inability to perform daily activity, or any new concerning complaints. Here's a copy of your CT report: (Please follow up with a specialist). Launch?[facility] [employer] [address] [place] [address] CT Scan Report Signed Patient: Wilma Kohli Unit #: [id number] : 1970 Age/Sex: 51 / F ADM Date: 01/06/22 Loc: ER Room/Bed: Attending Dr: Ordering Provider/Ordering MD: Mini Quinones MD Date of Service: 01/06/22 Procedure(s): CT angio headneck* [id number] Accession Number(s): [id number] Report Number: [id number] PROCEDURE INFORMATION: Exam: CT Angiography Head With Contrast, Arteriography Exam date and time: 01/06/2022 6:47 PM Age: 51 years old Clinical indication: Pain; Other: Evaluate vessels; Additional info: Eval vessel issues TECHNIQUE: Imaging protocol: Computed tomography angiography of the head with contrast. Exam focused on the arteries. 3D rendering (Not supervised by radiologist): MIP and/or 3D reconstructed images were created by the technologist. Radiation optimization: All CT scans at this facility use at least one of these dose optimization techniques: automated exposure control; mA and/or kV adjustment per patient size (includes targeted exams where dose is matched to clinical indication); or iterative reconstruction. Contrast material: OMNI 350; Contrast volume: 96 ml; Contrast route: INTRAVENOUS (IV);? COMPARISON: 1. CT head wo con* [id number] 01/06/2022 6:[address] head wo con* [id number] 10/12/2021 3:06 AM RADIATION DOSE METRICS: Total DLP (mGy-cm): 680.33 FINDINGS: ANTERIOR CIRCULATION: Right internal carotid artery: Unremarkable. Intracranial segment is patent with no significant stenosis. No aneurysm. Right middle cerebral artery: Unremarkable. No occlusion or significant stenosis. No aneurysm.? Right anterior cerebral artery: Unremarkable. No occlusion or significant stenosis. No aneurysm.? Left internal carotid artery: Unremarkable. Intracranial segment is patent with no significant stenosis. No aneurysm. Left middle cerebral artery: Unremarkable. No occlusion or significant stenosis. No aneurysm.? Left anterior cerebral artery: Unremarkable. No occlusion or significant stenosis. No aneurysm.? POSTERIOR CIRCULATION: Right vertebral artery: Unremarkable. No occlusion or significant stenosis. No aneurysm.? Left vertebral artery: Unremarkable. No occlusion or significant stenosis. No aneurysm.? Basilar artery: Unremarkable. No occlusion or significant stenosis. No aneurysm. Right posterior cerebral artery: Unremarkable. No occlusion or significant stenosis. No aneurysm.? Left posterior cerebral artery: Unremarkable. No occlusion or significant stenosis. No aneurysm.? Brain: No definite mass, mass effect, or midline shift. Cerebral ventricles: No ventriculomegaly. Bones/joints: Unremarkable. No acute fracture. Soft tissues: Unremarkable. PROCEDURE INFORMATION: Exam: CT Angiography Neck With Contrast Exam date and time: 01/06/2022 6:47 PM Age: 51 years old Clinical indication: Pain; Other: Evaluate vessels; Additional info: Eval vessel issues TECHNIQUE: Imaging protocol: Computed tomography angiography of the neck with contrast. 3D rendering (Not supervised by radiologist): MIP and/or 3D reconstructed images were created by the technologist. Radiation optimization: All CT scans at this facility use at least one of these dose optimization techniques: automated exposure control; mA and/or kV adjustment per patient size (includes targeted exams where dose is matched to clinical indication); or iterative reconstruction. Contrast material: OMNI 350; Contrast volume: 96 ml; Contrast route: INTRAVENOUS (IV);? COMPARISON: 1. CT head wo con* [id number] 01/06/2022 6:[address] head wo con* [id number] 10/12/2021 3:06 AM RADIATION DOSE METRICS: Total DLP (mGy-cm): 680.33 FINDINGS: Right common carotid artery: No stenosis. No dissection or occlusion. Right internal carotid artery: No significant stenosis of the extracranial segment. No dissection or occlusion. Minimal plaque in the bifurcation. Right external carotid artery: No occlusion or stenosis of the origin.? Left common carotid artery: No stenosis. No dissection or occlusion. Left internal carotid artery: No significant stenosis of the extracranial segment. No dissection or occlusion. Minimal plaque in the bifurcation. Left external carotid artery: No occlusion or stenosis of the origin.? Right vertebral artery: No stenosis. No dissection or occlusion. Left vertebral artery: No stenosis. No dissection or occlusion. Thyroid: Heterogeneous circumscribed partially calcified left thyroid nodule 1.5 cm diameter. Soft tissues: Normal. No significant soft tissue swelling. Bones/joints: No acute fracture. CT/CT angio headneck* [id number] IMPRESSION: No large vessel stenosis or occlusion. ? ? IMPRESSION: Less than 50% carotid artery stenosis. ? COMMENTS: Consistent with the [employer]'s Incidental Findings Committee white paper ([facility] [employer] [facility] 2015): In patients aged 35 years and older with an incidental thyroid nodule equal to or greater than 1.[address], MRI or extrathyroidal US, further evaluation with dedicated thyroid US is recommended for patients with normal life expectancy and without comorbidities. For smaller nodules without suspicious features, no further evaluation or follow up is recommended. ? REFERENCES: NASCET CRITERIA. The degree of internal carotid artery stenosis is based on NASCET criteria. Normal is no stenosis. Mild is less than 50% stenosis. Moderate is 50-69% stenosis. Severe is 70% to 99% stenosis. Total occlusion is no detectable patent lumen. ? 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
[2022-01-06 16:48] LABS: Basophils # 0.1 10^3/uL (0.0-0.1); Basophils % 0.6 %; Eosinophils # 0.2 10^3/uL (0.0-0.8); Eosinophils % 1.7 %; Hematocrit 45.9 % (37.0-47.0); Hemoglobin 13.7 g/dL (11.5-15.3); Lymphocytes # 2.5 10^3/uL (0.8-4.8); Lymphocytes % 24.9 %; Mean Corpuscular HGB Conc 29.8 g/dL (30.0-36.0); Mean Corpuscular Hemoglobin 30.6 pg (28.0-34.0); Mean Corpuscular Volume 102.7 fl (81-99); Mean Platelet Volume 10.4 fL (7.4-10.4); Monocytes # 0.6 10^3/uL (0.2-0.9); Monocytes % 5.9 %; Neutrophils # 6.51 10^3/uL (1.8-7.7); Neutrophils % 66.3 %; Nucleated Red Blood Cells % 0 %; Platelet Count 254 10^3/cmm (130-400); Red Blood Count 4.47 10^6/uL (4.1-5.3); Red Cell Distribution Width 13.7 % (12.1-15.1); White Blood Count 9.8 10^3/uL (4.0-10.0)
--- NOTE | 2022-01-06 16:48 | PC.NURSE ---
unsuccessful IV attempts. 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
[2022-01-06] MEDS: acetaminophen 500 mg Tablet PO (17:00)
[2022-01-06] MEDS: sodium chloride 0.9% 1,000 ML 999 ML IV (17:00)
[2022-01-06] MEDS: sodium chloride 0.9% 500 ML IV (17:00)
[2022-01-06] MEDS: metoclopramide 5 mg/mL SDV 2 mL IVP (17:01)
[2022-01-06 17:33] LABS: Troponin(5th) Baseline 8 ng/L (0-10)
[2022-01-06 17:35] LABS: Alanine Aminotransferase 18 U/L (0-33); Albumin Level 3.9 g/dL (3.5-5.2); Alkaline Phosphatase 87 IU/L (35-105); Anion Gap 16.4 (5-19); Aspartate Amino Transferase 12 U/L (0-32); Blood Urea Nitrogen 18 mg/dL (6-20); Calcium 9.4 mg/dL (8.5-10.5); Carbon Dioxide 25 mmol/L (22-29); Chloride 103 mmol/L (98-107); Free T4 Free Thyroxine 0.95 ng/dL (0.82-1.77); Globulin 2.6 g/dL (1.3-4.6); Glomerular Filtration Rate 87.9 mL/min (90-130); Glucose 100 mg/dL (65-115); Lipase 26 U/L (13-60); Osmolality Calculated 292 mOsm/kg (285-295); Potassium 4.4 mmol/L (3.5-5.1); Sodium 140 mmol/L (136-145); Thyroid Stimulating Hormone 2.72 uIU/mL (0.27-4.20); Total Bilirubin 0.3 mg/dL (0.15-1.2); Total Protein 6.5 g/dL (6.6-8.7)
[2022-01-06 17:39] LABS: D Dimer 1.13 ug/mIFEU (0-0.59)
--- NOTE | 2022-01-06 17:58 | CTR_ITS ---
PROCEDURE INFORMATION: Exam: CT Angiography Head With Contrast, Arteriography Exam date and time: 01/06/2022 6:47 PM Age: 51 years old Clinical indication: Pain; Other: Evaluate vessels; Additional info: Eval vessel issues TECHNIQUE: Imaging protocol: Computed tomography angiography of the head with contrast. Exam focused on the arteries. 3D rendering (Not supervised by radiologist): MIP and/or 3D reconstructed images were created by the technologist. Radiation optimization: All CT scans at this facility use at least one of these dose optimization techniques: automated exposure control; mA and/or kV adjustment per patient size (includes targeted exams where dose is matched to clinical indication); or iterative reconstruction. Contrast material: OMNI 350; Contrast volume: 96 ml; Contrast route: INTRAVENOUS (IV); COMPARISON: 1. CT head wo con* [id number] 01/06/2022 6:[address] head wo con* [id number] 10/12/2021 3:06 AM RADIATION DOSE METRICS: Total DLP (mGy-cm): 680.33 FINDINGS: ANTERIOR CIRCULATION: Right internal carotid artery: Unremarkable. Intracranial segment is patent with no significant stenosis. No aneurysm. Right middle cerebral artery: Unremarkable. No occlusion or significant stenosis. No aneurysm. Right anterior cerebral artery: Unremarkable. No occlusion or significant stenosis. No aneurysm. Left internal carotid artery: Unremarkable. Intracranial segment is patent with no significant stenosis. No aneurysm. Left middle cerebral artery: Unremarkable. No occlusion or significant stenosis. No aneurysm. Left anterior cerebral artery: Unremarkable. No occlusion or significant stenosis. No aneurysm. POSTERIOR CIRCULATION: Right vertebral artery: Unremarkable. No occlusion or significant stenosis. No aneurysm. Left vertebral artery: Unremarkable. No occlusion or significant stenosis. No aneurysm. Basilar artery: Unremarkable. No occlusion or significant stenosis. No aneurysm. Right posterior cerebral artery: Unremarkable. No occlusion or significant stenosis. No aneurysm. Left posterior cerebral artery: Unremarkable. No occlusion or significant stenosis. No aneurysm. Brain: No definite mass, mass effect, or midline shift. Cerebral ventricles: No ventriculomegaly. Bones/joints: Unremarkable. No acute fracture. Soft tissues: Unremarkable. PROCEDURE INFORMATION: Exam: CT Angiography Neck With Contrast Exam date and time: 01/06/2022 6:47 PM Age: 51 years old Clinical indication: Pain; Other: Evaluate vessels; Additional info: Eval vessel issues TECHNIQUE: Imaging protocol: Computed tomography angiography of the neck with contrast. 3D rendering (Not supervised by radiologist): MIP and/or 3D reconstructed images were created by the technologist. Radiation optimization: All CT scans at this facility use at least one of these dose optimization techniques: automated exposure control; mA and/or kV adjustment per patient size (includes targeted exams where dose is matched to clinical indication); or iterative reconstruction. Contrast material: OMNI 350; Contrast volume: 96 ml; Contrast route: INTRAVENOUS (IV); COMPARISON: 1. CT head wo con* [id number] 01/06/2022 6:[address] head wo con* [id number] 10/12/2021 3:06 AM RADIATION DOSE METRICS: Total DLP (mGy-cm): 680.33 FINDINGS: Right common carotid artery: No stenosis. No dissection or occlusion. Right internal carotid artery: No significant stenosis of the extracranial segment. No dissection or occlusion. Minimal plaque in the bifurcation. Right external carotid artery: No occlusion or stenosis of the origin. Left common carotid artery: No stenosis. No dissection or occlusion. Left internal carotid artery: No significant stenosis of the extracranial segment. No dissection or occlusion. Minimal plaque in the bifurcation. Left external carotid artery: No occlusion or stenosis of the origin. Right vertebral artery: No stenosis. No dissection or occlusion. Left vertebral artery: No stenosis. No dissection or occlusion. Thyroid: Heterogeneous circumscribed partially calcified left thyroid nodule 1.5 cm diameter. Soft tissues: Normal. No significant soft tissue swelling. Bones/joints: No acute fracture. CT/CT angio headneck* [id number] IMPRESSION: No large vessel stenosis or occlusion. IMPRESSION: Less than 50% carotid artery stenosis. COMMENTS: Consistent with the [employer]'s Incidental Findings Committee white paper ([facility] 2015): In patients aged 35 years and older with an incidental thyroid nodule equal to or greater than 1.[address], MRI or extrathyroidal US, further evaluation with dedicated thyroid US is recommended for patients with normal life expectancy and without comorbidities. For smaller nodules without suspicious features, no further evaluation or follow up is recommended. REFERENCES: NASCET CRITERIA. The degree of internal carotid artery stenosis is based on NASCET criteria. Normal is no stenosis. Mild is less than 50% stenosis. Moderate is 50-69% stenosis. Severe is 70% to 99% stenosis. Total occlusion is no detectable patent lumen.
--- NOTE | 2022-01-06 17:58 | CTR_ITS ---
PROCEDURE INFORMATION: Exam: CT Head Without Contrast Exam date and time: 01/06/2022 6:38 PM Age: 51 years old Clinical indication: Pain; Headache; Additional info: Eval headache TECHNIQUE: Imaging protocol: Computed tomography of the head without contrast. Radiation optimization: All CT scans at this facility use at least one of these dose optimization techniques: automated exposure control; mA and/or kV adjustment per patient size (includes targeted exams where dose is matched to clinical indication); or iterative reconstruction. COMPARISON: CT head wo con* [id number] 10/12/2021 3:06 AM RADIATION DOSE METRICS: Total DLP (mGy-cm): 867.6 FINDINGS: Brain: Normal. No hemorrhage. Unremarkable white matter. No mass effect. Cerebral ventricles: No ventriculomegaly. Paranasal sinuses: Visualized sinuses are unremarkable. No fluid levels. Mastoid air cells: Visualized mastoid air cells are well aerated. Bones/joints: Unremarkable. No acute fracture. Soft tissues: Unremarkable. CT/CT head wo con* [id number] IMPRESSION: No acute intracranial abnormality.
--- NOTE | 2022-01-06 17:58 | CTR_ITS ---
PROCEDURE INFORMATION: Exam: CTA Chest With Contrast Exam date and time: 01/06/2022 6:55 PM Age: 51 years old Clinical indication: Pain; Shortness of breath; Other: Evaluate vessels; Additional info: Eval pe TECHNIQUE: Imaging protocol: Computed tomographic angiography of the chest with contrast. 3D rendering (Not supervised by radiologist): MIP and/or 3D reconstructed images were created by the technologist. Radiation optimization: All CT scans at this facility use at least one of these dose optimization techniques: automated exposure control; mA and/or kV adjustment per patient size (includes targeted exams where dose is matched to clinical indication); or iterative reconstruction. Contrast material: OMNI 350; Contrast volume: 96 ml; Contrast route: INTRAVENOUS (IV); COMPARISON: CR (CHEST, ) 10/12/2021 3:51 AM RADIATION DOSE METRICS: Total DLP (mGy-cm): 620.33 FINDINGS: Pulmonary arteries: Normal. No pulmonary emboli. Aorta: Unremarkable. No aortic aneurysm. No aortic dissection. Thyroid: Circumscribed heterogeneous peripherally calcified left inferior thyroid nodule measures 1.3 cm greatest diameter. No dedicated imaging follow-up is recommended. Lungs: Unremarkable. No consolidation. No masses. Pleural spaces: Unremarkable. No pneumothorax. No pleural effusion. Heart: Unremarkable. No cardiomegaly. No pericardial effusion. Mediastinal space: Calcified nonenlarged mediastinal granulomas. Lymph nodes: Negative for mediastinal lymphadenopathy. Bones/joints: Unremarkable. No acute fracture. Soft tissues: Unremarkable. CT/CT angio chest PE protcl [id number] IMPRESSION: Negative CTA chest. No acute abnormality. COMMENTS: Consistent with the [employer]'s Incidental Findings Committee white paper ([facility] [employer] [facility] 2015): In patients aged 35 years and older with an incidental thyroid nodule equal to or greater than 1.[address], MRI or extrathyroidal US, further evaluation with dedicated thyroid US is recommended for patients with normal life expectancy and without comorbidities. For smaller nodules without suspicious features, no further evaluation or follow up is recommended.
--- NOTE | 2022-01-06 18:15 | ECG_ITS ---
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 Measurements Intervals [place] Rate: 69 P: 49 NV: 145 QRS: 7 QRSD: 89 T: 34 QT: 388 QTc: 416 Interpretive Statements SINUS RHYTHM NONSPECIFIC T-WAVE ABNORMALITY Compared to ECG 01/06/2022 16:19:34 T-wave abnormality now present Short NV interval no longer present Electronically Signed On 01-06-2022 23:31:45 CDT by Crystal Bryant M.D. [id number]
--- NOTE | 2022-01-06 18:40 | PC.NURSE ---
Patient in CT at this time. Patient before leaving was able to ambulate a small amount in [place].
[2022-01-06 18:41] VITALS: PULSE 89; RESP 18
[2022-01-06 19:16] LABS: Add Urine Microscopic? NO; Charge for UA Resulting for Rev
[2022-01-06 19:18] LABS: Troponin 5 2HR Delta -1.7 ABS# (0-10)
[2022-01-06 19:20] LABS: Bilirubin Urine Neg (Negative); Blood Urine Neg (Negative); Glucose Urine UA Norm (Normal); Ketones Urine Negative (Negative); Leukocyte Esterase Urine Negative (Negative); Nitrate Urine Negative (Negative); Protein Urine Neg (Negative); Specific Gravity, Urine 1.025 (1.005-1.030); Urine Appearance Clear (CLEAR); Urine Color Yellow (Yellow); Urobilinogen Urine Norm (Negative); pH Urine 5 (5-7)
[2022-01-06 19:34] VITALS: BP 147/92; PULSE 76; RESP 18; O2SAT 96
[2022-01-06] MEDS: iohexol 350 mg/mL 100 mL Btl IV ×2 (19:42→19:44)
[2022-01-06 20:07] VITALS: BP 147/80; PULSE 77; RESP 18; O2SAT 98
[2022-01-06 21:04] LABS: Adenovirus Not Detected (NOT DETECT); Chlamydia Pneumoniae Not Detected (NOT DETECT); Coronavirus 229E,HKU1,NL63,OC4 Not Detected (NOT DETECT); Human Metapneumovirus Not Detected (NOT DETECT); Human Rhinovirus/Enterovirus Not Detected (NOT DETECT); Influenza A Not Detected (NOT DETECT); Influenza A H1 Not Detected (NOT DETECT); Influenza A H1-2009 Not Detected (NOT DETECT); Influenza A H3 Not Detected (NOT DETECT); Influenza B Not Detected (NOT DETECT); Mycoplasma Pneumoniae Not Detected (NOT DETECT); Parainfluenza Virus Type 1 Not Detected (NOT DETECT); Parainfluenza Virus Type 2 Not Detected (NOT DETECT); Parainfluenza Virus Type 3 Not Detected (NOT DETECT); Parainfluenza Virus Type 4 Not Detected (NOT DETECT); Respiratory Syncytial Virus A Not Detected (NOT DETECT); Respiratory Syncytial Virus B Not Detected (NOT DETECT); SARS-COV-2 Not Detected (NOT DETECT)
[2022-01-06 21:41] LABS: Results from Genmark
== END 2022-01-06 20:09 | disposition home or self-care (01) ==
PROVIDERS: Emergency Provider Emergency Medicine; PCP Nurse Practitioner Family
DX: R42 Dizziness and giddiness (principal); R53.83 Other fatigue; R20.2 Paresthesia of skin
CPT/HCPCS: 70450; 70496; 70498; 71275; 80053; 81003; 83690; 84439; 84443; 84484; 85025; 85378; 87631; 87635; 93005; 96361; 96374; 99284; J2765; J7030; J7040; Q9967

== ENCOUNTER → 2024-11-10 11:01 | Outpatient (BNVA) | payer OTHER, SELFPAY | PROVIDERS: PCP Nurse Practitioner Family; Visit Provider Nurse Practitioner | DX: R35.0 Frequency of micturition (principal); R31.9 Hematuria, unspecified | CPT/HCPCS: 81000; 87086 ==